=== PATIENT | male | born 1995 | race Caucasian/White ===

== ENCOUNTER 2017-05-04 13:09 | Emergency (ER) | payer BC ==
[~2017-05-04] VITALS: Wt 65.8 kg
[~2017-05-04 13:09] MED LIST: AMOXICILLIN500 M1 PO; AMOXICILLIN500 M2 PO; AMOXICILLIN500 MG PO; CLARITIN10 MG PO; CLINDAMYCIN HC300 MG PO; ERYTHROMYCIN OPH1 GM OPH; HYDROCODONE BIT1 T11 PO; IBU800 MG PO; KEFLEX500 MG PO; MEDROL DOSEPAK4 MG PO; MOTRIN400 MG PO; MOTRIN600 MG PO; MOTRIN800 MG PO; NAPROSYN500 MG PO; NKHM; PHENERGAN W/DM120 ML PO; PREDNISONE20 MG PO; SUDAFED60 M1 PO; TOBREX OPHTH S2.5 ML OPH; TYLENOL W/CODE480 ML PO; TYLENOL W/CODEI1 TA2 PO; TYLENOL WITH CO1 TA1 PO
[2017-05-04 13:18] VITALS: BP 148/87
[2017-05-04] MEDS ORDERED: Peridex 473 ML473 ML PO (13:21)
[2017-05-04] MEDS ORDERED: PENICILLIN VK500 MG PO (13:21)
[2017-05-04] MEDS ORDERED: NAPROSYN500 MG PO (13:21)
== END 2017-05-04 13:48 | disposition home or self-care (01) ==
LOC: ED 13:09
DX: K08.89 Other specified disorders of teeth and supporting structures (principal); R03.0 Elevated blood-pressure reading, without diagnosis of hypertension; F17.200 Nicotine dependence, unspecified, uncomplicated

== ENCOUNTER 2017-07-10 14:27 | Emergency (ER) | payer BC ==
[~2017-07-10] VITALS: Ht 182.8 cm; Wt 68.0 kg
[~2017-07-10 14:27] MED LIST changes: +PENICILLIN VK500 MG PO; +Peridex 473 ML473 ML PO
[2017-07-10 14:58] VITALS: BP 124/68
== END 2017-07-10 16:13 | disposition home or self-care (01) ==
LOC: ED 14:27
DX: J02.9 Acute pharyngitis, unspecified (principal); F17.200 Nicotine dependence, unspecified, uncomplicated

== ENCOUNTER 2018-02-13 13:39 | Emergency (ER) | payer SELFPAY ==
[~2018-02-13] VITALS: Ht 182.8 cm; Wt 63.5 kg
[2018-02-13 13:40] VITALS: BP 123/81
[2018-02-13] MEDS ORDERED: Peridex 473 ML473 ML PO (13:41)
[2018-02-13] MEDS ORDERED: PENICILLIN VK500 MG PO (13:41)
[2018-02-13] MEDS ORDERED: NAPROSYN500 MG PO (13:41)
[2018-02-20] MEDS ORDERED: PENICILLIN VK500 MG PO (15:03)
[2018-02-20] MEDS ORDERED: Peridex 473 ML473 ML PO (15:03)
[2018-02-20] MEDS ORDERED: ZOFRAN4 MG PO (15:03)
[2018-02-20] MEDS ORDERED: NAPROSYN500 MG PO (15:03)
== END 2018-02-13 13:47 | disposition home or self-care (01) ==
LOC: ED 13:39
DX: K08.89 Other specified disorders of teeth and supporting structures (principal); R03.0 Elevated blood-pressure reading, without diagnosis of hypertension

== ENCOUNTER 2018-07-27 | Emergency (ER) | payer SELFPAY ==
[~2018-07-27] MED LIST changes: +ZOFRAN4 MG PO
[2018-07-27] MEDS ORDERED: AMOXICILLIN500 M2 PO (19:43)
== END 2018-07-27 20:11 | disposition home or self-care (01) ==
DX: J02.0 Streptococcal pharyngitis (principal); Z79.899 Other long term (current) drug therapy

== ENCOUNTER 2019-08-13 21:49 | Emergency (ER) | payer SELFPAY ==
[~2019-08-13] VITALS: Wt 65.8 kg
[2019-08-13 21:51] VITALS: BP 114/89
[2019-08-13] MEDS ORDERED: CLEOCIN HCL150 MG PO (22:19)
[2019-08-13] MEDS ORDERED: IBU800 MG PO (22:19)
== END 2019-08-13 22:36 | disposition home or self-care (01) ==
LOC: ED 21:49
DX: K04.7 Periapical abscess without sinus (principal); K08.89 Other specified disorders of teeth and supporting structures; F17.200 Nicotine dependence, unspecified, uncomplicated; Z79.2 Long term (current) use of antibiotics; Z88.8 Allergy status to other drugs, medicaments and biological substances

== ENCOUNTER 2021-04-08 14:46 | Emergency (ER) | payer SELFPAY ==
[~2021-04-08 14:46] MED LIST changes: +CLEOCIN HCL150 MG PO
== END 2021-04-08 16:00 | disposition left against medical advice (07) ==
LOC: ED 14:46
DX: R11.2 Nausea with vomiting, unspecified (principal); R19.7 Diarrhea, unspecified; Z53.21 Procedure and treatment not carried out due to patient leaving prior to being seen by health care provider

== ENCOUNTER 2024-04-16 12:11 | Emergency (ER) | payer SELFPAY ==
[~2024-04-16] VITALS: Wt 65.8 kg
[2024-04-16 12:35] VITALS: BP 124/72
[2024-04-16 13:59] LABS: BASO # 0.1 10*3/uL (0.0-0.1); BASO % 0.4 % (0.0-1.0); EOS # 0.1 10*3/uL (0.0-0.4); EOS % 0.5 % (1.0-4.0); HEMATOCRIT 34.6 % (42.0-52.0); LYMPH # 2.1 10*3/uL (1.3-4.4); LYMPH % 13.3 % (27.0-41.0); MEAN CELL VOLUME 80.1 fl (80.0-94.0); MEAN CORPUSCULAR HGB 24.8 pg (27.0-31.0); MEAN CORPUSCULAR HGB CONC 30.9 g/dl (33.0-37.0); MEAN PLATELET VOLUME 9.1 fl (9.6-12.3); MONO # 1.3 10*3/uL (0.1-1.0); MONO % 8.2 % (3.0-9.0); NEUT # 12.4 10*3/uL (2.3-7.9); NEUT % 77.2 % (47.0-73.0); PLATELET COUNT AUTOMATED 490 10*3/uL (130-400); RED BLOOD COUNT 4.32 10*6/uL (4.50-5.90); RED CELL DISTRI WIDTH 14.1 % (0-14.5)
[2024-04-16] MEDS ORDERED: SODIUM CHLORIDE 0.9% 1,000 ML IV SCH (14:10)
[2024-04-16 14:26] LABS: BUN 11 mg/dl (9-23); CHLORIDE 104 mmol/L (98-107); LIPASE 26 U/L (12-53); POTASSIUM 3.7 mmol/L (3.4-5.1)
[2024-04-16 16:57] LABS: BILIRUBIN Negative (Negative); BLOOD Negative (Negative); CLARITY Clear (Clear); COLOR Yellow (Yellow); GLUCOSE Negative (Negative); KETONE Negative (Negative); LEUKO ESTERASE Negative (Negative); NITRITE Negative (Negative)
[2024-04-16 17:22] LABS: MUCOUS 2+
[2024-04-16] MEDS ORDERED: FLOMAX0.4 MG PO (17:31)
[2024-04-16] MEDS ORDERED: Ketorolac Tromethamine 15 MG/ML VIAL IV ONE (17:35)
== END 2024-04-16 18:03 | disposition home or self-care (01) ==
LOC: ED 12:11
PROVIDERS: Internal Medicine
DX: N20.0 Calculus of kidney (principal); Z88.5 Allergy status to narcotic agent